=== PATIENT | male | born 1975 | race Two or more races ===

== ENCOUNTER 2016-12-03 21:42 | Emergency (ER) | payer SELFPAY ==
[~2016-12-03] VITALS: Ht 177.8 cm; Wt 75.3 kg
[2016-12-03] MEDS ORDERED: ATARAX25 MG ORAL (22:47)
[2016-12-03] MEDS ORDERED: KEFLEX500 MG ORAL (22:53)
[2016-12-03 23:01] VITALS: BP 133/86
[2016-12-03 23:02] VITALS: BP 137/86
[2016-12-04] MEDS ORDERED: ATIVAN1 MG ORAL (00:57)
--- NOTE | 2016-12-04 03:53 | Emergency Room Report ---
History of Present Illness General Chief Complaint: General Complaint Source: Patient Present Illness HPI Patient is a 41-year-old male presented after increased itchiness to his back as well as his right upper extremity. Patient had had gradual onset of symptoms. Patient stated that he felt like he was being bitten by insects. Patient had denied any numbness or weakness. patient denied any fever. He denied any numbness or weakness. He denied any recent medication use. Allergies: Coded Allergies: No Known Allergies (Unverified , 12/03/16) Patient History Past Medical History: see triage record Reviewed Nursing Documentation: PMH: Agreed, PSxH: Agreed Nursing Documentation-PM Past Medical History: No Stated History Review of Systems All Other Systems: negative except mentioned in HPI Physical Exam Vital Signs Date Time Temp Pulse Resp B/P Pulse Ox O2 Delivery O2 Flow Rate FiO2 12/03/16 21:53 98.2 97 16 137/86 98 Room Air General Appearance: well appearing, no apparent distress, alert, GCS 15 Head: normocephalic, atraumatic ENT: hearing grossly normal, normal voice Neck: full range of motion, supple Respiratory: no respiratory distress, speaking full sentences Gastrointestinal: normal inspection, soft, hernia - right inguinal Genitourinary: penis normal Musculoskeletal: no calf tenderness Neurologic: normal inspection, alert, normal gait Psychiatric: mood/affect normal Skin: other - generalized papular rash to back, right upper extremity Medical Decision Making Diagnostic Impression: Primary Impression: Insect bites ER Course Patient presented for skin rash. Differential diagnosis included was not limited to substance abuse, insect bite, allergic reaction, contact dermatitis among others. Patient's benign exam and does not appear to require any further imaging or laboratory testing at this time. The patient was given prescription for Keflex for what appears to be an infected insect bite to his right upper extremity. The patient given prescription for Atarax for itching. The patient is advised to follow up with primary care doctor in 1-2 days. Patient is advised to return if any worsening condition or if any changes in status that are concerning. Last Vital Signs Date Time Temp Pulse Resp B/P Pulse Ox O2 Delivery O2 Flow Rate FiO2 12/03/16 23:02 98.2 16 137/86 98 Room Air 12/03/16 21:53 97 Status: improved Disposition: HOME, SELF-CARE Condition: Stable Scripts Cephalexin* (KEFLEX*) 500 Mg Capsule 500 MG ORAL Q6H, #28 CAP 0 Refills Prov: Sachin Miller 12/03/16 Hydroxyzine HCl (Hydroxyzine HCl) 25 Mg Tablet 25 MG ORAL FOUR TIMES A DAY, #30 TAB Prov: Sachin Miller 12/03/16 Patient Instructions: Insect Bite Sachin Miller Dec 04, 2016 03:53
== END 2016-12-03 23:03 | disposition home or self-care (01) ==
LOC: EMR 22:13
DX: S30.860A Insect bite (nonvenomous) of lower back and pelvis, initial encounter (principal); S40.861A Insect bite (nonvenomous) of right upper arm, initial encounter; W57.XXXA Bitten or stung by nonvenomous insect and other nonvenomous arthropods, initial encounter; Y92.89 Other specified places as the place of occurrence of the external cause; R21 Rash and other nonspecific skin eruption
CPT/HCPCS: 99284

== ENCOUNTER 2016-12-04 00:34 | Emergency (ER) | payer SELFPAY ==
[~2016-12-04] VITALS: Ht 177.8 cm; Wt 75.3 kg
[~2016-12-04 00:34] MED LIST: ATARAX25 MG ORAL; KEFLEX500 MG ORAL
[2016-12-04] MEDS ORDERED: ATIVAN1 MG ORAL (00:57)
[2016-12-04] MEDS ORDERED: LORazepam 1mg tab ORAL ONE (01:00)
[2016-12-04 01:10] VITALS: BP 138/90
[2016-12-04 01:11] VITALS: BP 132/81
--- NOTE | 2016-12-04 03:57 | Emergency Room Report ---
History of Present Illness General Chief Complaint: General Complaint Source: Patient Present Illness HPI Patient is a 41-year-old male who presented after having increased skin rash. Patient reported having complaints of the feeling of insects on his body. Patient stated that he had recently stopped using methamphetamine. Patient denies any auditory hallucinations. He states that he did not have any suicidal thoughts. He had denied any other complaints at this time. Patient had recently seen by me for what would appear to be some skin lesions to his back. Allergies: Coded Allergies: No Known Allergies (Unverified , 12/03/16) Patient History Past Medical History: see triage record Reviewed Nursing Documentation: PMH: Agreed, PSxH: Agreed Nursing Documentation-PMH Past Medical History: No Stated History Review of Systems All Other Systems: negative except mentioned in HPI Physical Exam Vital Signs Date Time Temp Pulse Resp B/P Pulse Ox O2 Delivery O2 Flow Rate FiO2 12/04/16 00:35 98.1 103 16 132/81 98 General Appearance: well appearing, no apparent distress, alert, GCS 15 Head: normocephalic, atraumatic ENT: hearing grossly normal, normal voice Neck: full range of motion, supple Respiratory: no respiratory distress, speaking full sentences Gastrointestinal: normal inspection, normal bowel sounds, non tender, soft, no mass Musculoskeletal: normal inspection, no calf tenderness Neurologic: normal inspection, alert, oriented x3, responsive, [employer]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 Differential diagnoses include substance abuse, psychosis, bipolar disorder, depression, malingering. Patient' s benign exam and does not appear to require any further imaging or laboratory testing at this time. The patient does appear to have evidence of psychosis requiring hospitalization. Patient was given oral Ativan as well as Zyprexa. Patient given outpatient mental health referrals. Patient was advised followup with outpatient mental health for further evaluation and treatment. He is advised to discontinue drug use. Last Vital Signs Date Time Temp Pulse Resp B/P Pulse Ox O2 Delivery O2 Flow Rate FiO2 12/04/16 01:11 98.1 16 132/81 98 12/04/16 00:35 103 Status: improved Disposition: HOME, SELF-CARE Condition: Stable Scripts Lorazepam* (ATIVAN*) 1 Mg Tablet 1 MG ORAL BEDTIME, #10 TAB Prov: Sachin Miller 12/04/16 Patient Instructions: Substance Use Disorder Sachin Miller Dec 04, 2016 03:57
== END 2016-12-04 01:13 | disposition home or self-care (01) ==
LOC: EMR 00:52
DX: F19.10 Other psychoactive substance abuse, uncomplicated (principal); S30.860A Insect bite (nonvenomous) of lower back and pelvis, initial encounter; W57.XXXA Bitten or stung by nonvenomous insect and other nonvenomous arthropods, initial encounter; Y93.9 Activity, unspecified; Y92.9 Unspecified place or not applicable
CPT/HCPCS: 99284

== ENCOUNTER 2016-12-04 02:22 | Emergency (ER) | payer SELFPAY ==
[~2016-12-04] VITALS: Ht 177.8 cm; Wt 75.3 kg
[~2016-12-04 02:22] MED LIST changes: +ATIVAN1 MG ORAL
[2016-12-04] MEDS ORDERED: LORazepam Inj 2mg/ml 1ml IV ONE (02:30)
[2016-12-04 03:17] LABS: BASOPHILS % (AUTO) 1.2 % (0.0-2.0); LYMPHOCYTES % (AUTO) 18.7 % (20.0-45.0); MEAN CORPUSCULAR HEMOGLOBIN 30.1 PG (27.0-31.0); MEAN CORPUSCULAR HGB CONC 34.1 G/DL (32.0-36.0); MEAN CORPUSCULAR VOLUME 88 FL (80-99); MEAN PLATELET VOLUME 7.2 FL (6.5-10.1); MONOCYTES % (AUTO) 7.4 % (1.0-10.0); NEUTROPHILS % (AUTO) 70.7 % (45.0-75.0); PLATELET COUNT 259 K/UL (150-450); RED CELL DISTRIBUTION WIDTH 10.8 % (11.6-14.8); WHITE BLOOD COUNT 8.8 K/UL (4.8-10.8)
[2016-12-04 03:34] LABS: ACETAMINOPHEN < 10 ug/mL (10-30); ALANINE AMINOTRANSFERASE 29 U/L (3-41); ALBUMIN/GLOBULIN RATIO 1.7 (1.0-2.7); ALCOHOL < 10 mg/dL; ANION GAP 17 (5-15); ASPARTATE AMINO TRANSFERASE 23 U/L (5-40); CALCIUM 9.8 mg/dL (8.6-10.2); CARBON DIOXIDE 24 mEQ/L (20-30); CHLORIDE 99 mEQ/L (98-107); CREATININE 1.2 mg/dL (0.7-1.2); GLOMERULAR FILTRATION RATE > 60 mL/min (>60); HEMOLYSIS 46; POTASSIUM 3.9 mEQ/L (3.4-4.9); SODIUM 140 mEQ/L (135-145); TOTAL PROTEIN 7.9 g/dL (6.6-8.7)
[2016-12-04 03:43] VITALS: BP 111/79
--- NOTE | 2016-12-04 04:00 | Emergency Room Report ---
History of Present Illness General Chief Complaint: General Complaint Source: Patient (Sachin Miller) Present Illness HPI Patient is a 41-year-old male who presented after having increased difficulty sleeping. Patient gradual onset of symptoms. Patient was noted to have slept on previous visit. The patient denies other complaints at this time. Patient stated that he did not improve the medications previously given. Patient did not fill his prescriptions. (Sachin Miller) Allergies: Coded Allergies: No Known Allergies (Unverified , 12/03/16) Patient History Past Medical History: see triage record Reviewed Nursing Documentation: PMH: Agreed, PSxH: Agreed (PaulSachin) Nursing Documentation-PMH Past Medical History: No Stated History (Sachin Miller) Review of Systems All Other Systems: negative except mentioned in HPI (PaulSachin) Physical Exam Vital Signs Date Time Temp Pulse Resp B/P Pulse Ox O2 Delivery O2 Flow Rate FiO2 12/04/16 02:25 98.2 98 16 131/82 98 Room Air Sp02 EP Interpretation: reviewed, normal General Appearance: alert/responsive, no apparent distress, GCS 15, non-toxic Head: atraumatic Eyes: PERRL, lids + conjunctiva normal ENT: hearing intact, no angioedema Neck: supple/symm/no masses, no meningismus Respiratory: effort normal, no wheezing, chest symmetrical Cardiovascular: regular rate, rhythm, no edema Cardiovascular #2: 2+ carotid (R), 2+ carotid (L), 2+ dorsalis pedis (R), 2+ dorsalis pedis (L) Gastrointestinal: non-tender, no mass, non-distended, no rebound/guarding, normal bowel sounds Musculoskeletal: gait & station normal, strength & tone normal, normal ROM, non -tender Neurologic: normal inspection, CN II-XII intact, oriented x3, sensory intact, normal speech Skin: well hydrated, other - papular rash to back , right forearm erythema Lymphatic: normal inspection (Sachin Miller) Medical Decision Making Diagnostic Impression: Primary Impression: Substance abuse Additional Impression: Insect bites ER Course Patient presented for psychosis. Differential diagnoses include substance abuse, psychosis, bipolar disorder, depression, malingering. Because of complexity of patient's case laboratory testing and imaging studies were ordered. Patient noted be sleeping in emergency department. The patient started on IV fluids. Laboratory testing was unremarkable. Labs Test 12/04/16 02:43 White Blood Count 8.8 K/UL (4.8-10.8) Red Blood Count 5.60 M/UL (4.70-6.10) Hemoglobin 16.9 G/DL (14.2-18.0) Hematocrit 49.4 % (42.0-52.0) Mean Corpuscular Volume 88 FL (80-99) Mean Corpuscular Hemoglobin 30.1 PG (27.0-31.0) Mean Corpuscular Hemoglobin Concent 34.1 G/DL (32.0-36.0) Red Cell Distribution Width 10.8 % (11.6-14.8) Platelet Count 259 K/UL (150-450) Mean Platelet Volume 7.2 FL (6.5-10.1) Neutrophils (%) (Auto) 70.7 % (45.0-75.0) Lymphocytes (%) (Auto) 18.7 % (20.0-45.0) Monocytes (%) (Auto) 7.4 % (1.0-10.0) Eosinophils (%) (Auto) 2.0 % (0.0-3.0) Basophils (%) (Auto) 1.2 % (0.0-2.0) Sodium Level 140 mEQ/L (135-145) Potassium Level 3.9 mEQ/L (3.4-4.9) Chloride Level 99 mEQ/L (98-107) Carbon Dioxide Level 24 mEQ/L (20-30) Anion Gap 17 (5-15) Blood Urea Nitrogen 15 mg/dL (7-23) Creatinine 1.2 mg/dL (0.7-1.2) Estimat Glomerular Filtration Rate > 60 mL/min (>60) Glucose Level 112 mg/dL (74-106) Calcium Level 9.8 mg/dL (8.6-10.2) Total Bilirubin 0.9 mg/dL (0.0-1.2) Aspartate Amino Transf (AST/SGOT) 23 U/L (5-40) Alanine Aminotransferase (ALT/SGPT) 29 U/L (3-41) Alkaline Phosphatase 45 U/L (40-129) Total Protein 7.9 g/dL (6.6-8.7) Albumin 5.0 g/dL (3.5-5.2) Globulin 2.9 g/dL Albumin/Globulin Ratio 1.7 (1.0-2.7) Salicylates Level < 1 mg/dL (10-30) Acetaminophen Level < 10 ug/mL (10-30) Serum Alcohol < 10 mg/dL (Sachin Miller) ER Course Please refer to the note for the full history exam and presentation At this time social work was contacted They have spoken to the patient at length appears the patient might be having hallucinations from substance abuse However has significantly better overnight Patient reports to social work that he goes to [place] on a yearly basis to detox from drugs and also works he feels that this helps him significantly Otherwise no other complaints were made social work feels comfortable with the patient having outpatient followup (DIMPLE CALDERON D.O.) Last Vital Signs Date Time Temp Pulse Resp B/P Pulse Ox O2 Delivery O2 Flow Rate FiO2 12/04/16 03:43 97.8 73 18 111/79 98 Room Air Status: improved (Sachin Miller) Status: improved (DIMPLE CALDERON D.O.) Disposition: HOME, SELF-CARE Condition: Stable Referrals: NOT CHOSEN IPA/,REFERRING (PCP) Sachin Miller Dec 04, 2016 04:00 DIMPLE CALDERON D.O. Dec 04, 2016 09:46
[2016-12-04 07:30] VITALS: BP 109/75
[2016-12-04 09:31] LABS: APPEARANCE,URINE SLIGHTLY CLOUDY; KETONES,URINE NEGATIVE (NEGATIVE); LEUKOCYTE ESTERASE ,URINE NEGATIVE (NEGATIVE); NITRITE,URINE NEGATIVE (NEGATIVE); PH,URINE 6 (4.5-8.0); PROTEIN,URINE 2+ (NEGATIVE); UROBILINOGEN,URINE NORMAL MG/DL (0.0-1.0)
[2016-12-04 09:45] LABS: RBC,URINE 0-2 /HPF (0 - 0); SQUAMOUS EPITHELIAL CELL,UR FEW /LPF (NONE/OCC); WBC,URINE 0 /HPF (0 - 0)
[2016-12-04 09:55] VITALS: BP 114/76
[2016-12-04 09:57] VITALS: BP 114/76
== END 2016-12-04 09:59 | disposition home or self-care (01) ==
LOC: EMR 02:38
DX: F19.10 Other psychoactive substance abuse, uncomplicated (principal); S30.860A Insect bite (nonvenomous) of lower back and pelvis, initial encounter; S50.861A Insect bite (nonvenomous) of right forearm, initial encounter; W57.XXXA Bitten or stung by nonvenomous insect and other nonvenomous arthropods, initial encounter; Y93.9 Activity, unspecified; Y92.9 Unspecified place or not applicable
CPT/HCPCS: 36415; 80053; 80300; 81001; 85025; 99284; G0480; 80329